=== PATIENT | male | born 1955 | race Caucasian/White ===

== ENCOUNTER 2016-12-03 12:55 | Emergency (ER) | payer OTHER ==
[~2016-12-03] VITALS: Ht 170.2 cm; Wt 65.8 kg
[~2016-12-03 12:55] MED LIST: TRAMADOL HCL50 M1 PO; TRAMADOL50 MG PO; ULTRAM(MONOGRAP50 MG PO
[2016-12-03 13:01] VITALS: BP 139/85
--- NOTE | 2016-12-03 15:14 | ED THROAT/DENTAL COMPLAINT ---
History of Present Illness General Chief Complaint: Sore Throat, Dental Pain Stated Complaint: DENTAL PAIN Source: patient Exam Limitations: no limitations Vital Signs & Intake/Output Vital Signs & Intake/Output Vital Signs Date Time Temp Pulse Resp B/P B/P Pulse O2 O2 Flow FiO2 Mean Ox Delivery Rate 12/03 1301 98.1 86 18 139/85 96 Room Air Allergies Coded Allergies: NO KNOWN ALLERGIES (04/15/16) Reconcile Medications Amoxicillin 875 MG TABLET 1 TAB PO BID dental Naproxen (Naprosyn) 500 MG TABLET 1 TAB PO Q12H PRN pain Tramadol HCl 50 MG TABLET 1-2 TAB PO Q6 PRN pain Tramadol HCl 50 MG TABLET 1 TAB PO Q6P PRN HIP PAIN Triage Note: COMPLAINS OF FRONT LOW DENTAL PAIN THAT STARTED YESTERDAY Triage Nurses Notes Reviewed? yes HPI: Patient is a 61-year-old male presents complaining of dental pain. Patient reports pain onset yesterday frontal lower tooth. Patient has been taking ibuprofen and using a topical dental numbing medication with no improvement. Pain is an aching and sharp pain worsens with palpation. Patient denies fevers. Past History Travel History Traveled to [place] past 21 day No Medical History Any Pertinent Medical History? see below for history Neurological: MOTOR NEURON DISEASE LEFT HAND EENT: NONE Cardiovascular: NONE Respiratory: NONE Gastrointestinal: NONE Hepatic: NONE Renal: NONE Musculoskeletal: NONE Psychiatric: NONE Endocrine: NONE Blood Disorders: NONE Cancer(s): NONE DEPUTY SHERIFF GENERALIST/BAILIFF/Reproductive: NONE Surgical History Surgical History: cholecystectomy, hernia repair-ventral, hip replacement ( bilateral) Psychosocial History What is your primary language Croatian Tobacco Use: Never used ETOH Use: denies use Illicit Drug Use: denies illicit drug use Family History Hx Contributory? No Review of Systems Review of Systems Constitutional: Denies: chills, fever. EENTM: Reports: see HPI. Respiratory: Denies: short of breath. Skin: Reports: no symptoms. Neurological/Psychological: Reports: no symptoms. Hematologic/Endocrine: Reports: no symptoms. Immunologic/Allergic: Reports: no symptoms. Physical Exam Physical Exam General Appearance: alert, awake Head: atraumatic, normal appearance, no appreciable facial swelling Eyes: Bilateral: normal appearance. Nose: normal inspection Mouth/Throat: diffuse dental decay see diagram Neck: normal inspection, supple, full range of motion, no palpable lymphadenopathy Cardiovascular/Respiratory: normal breath sounds, regular rate/rhythm, no respiratory distress Back: normal inspection, normal range of motion Neurologic/Psych: awake, alert, oriented x 3 Skin: intact, normal color, warm/dry Diagram Dental: 1) severe decay, tender. no gingival erythema or swelling. no visible or palpable abscess Core Measures ACS in differential dx? No Severe Sepsis Present: No Septic Shock Present: No Progress Differential Diagnosis: carious tooth, odontogenic abscess, tooth fracture Plan of Care: No visible or palpable abscess. Patient afebrile. Appears stable for discharge and outpatient dental follow-up. Departure Departure Time of Disposition: 1514 Disposition: HOME OR SELF CARE Condition: Stable Clinical Impression Primary Impression: Toothache Referrals: PATIENT HAS NO PRIMARY CARE DR (PCP/Family) Additional Instructions: Follow-up with one of the dental clinics listed in your discharge paperwork for further evaluation and management. Return to the emergency department if fevers , facial swelling, or worsening of symptoms. Departure Forms: Customer Survey General Discharge Information Prescriptions: Current Visit Scripts Naproxen (Naprosyn) 1 TAB PO Q12H PRN pain #15 TAB Tramadol HCl 1-2 TAB PO Q6 PRN pain #15 TAB Amoxicillin 1 TAB PO BID #14 TAB
[2016-12-03] MEDS ORDERED: TRAMADOL HCL50 M1 PO (15:16)
[2016-12-03] MEDS ORDERED: NAPROSYN500 M1 PO (15:16)
[2016-12-03] MEDS ORDERED: AMOXICILLIN875 M1 PO (15:16)
== END 2016-12-03 15:25 ==
LOC: ERH 12:55
DX: K08.89 Other specified disorders of teeth and supporting structures (principal)